=== PATIENT | male | born 1950 | race African-American/Black ===

== ENCOUNTER 2024-03-15 16:24 | Emergency (ER) | payer MEDICARE, SELFPAY ==
[2024-03-15 16:28] VITALS: BP 165/83
--- NOTE | 2024-03-15 16:53 | ED.GENMED ---
History of Present Illness
<Amanda Vences MD PHYSICIAN DERMATOLOGIST - Last Filed: 03/15/24 17:40>
General
Chief Complaint: Throat Problem
Source: patient and spouse
Exam Limitations: none
Time Seen by Provider: 03/15/24 16:52
Nursing documentation reviewed up to this point in time: agreed with
Travel History
Have you had any contact with someone who has COVID-19?: No
Do you have any symptoms of coronavirus? Fever > 100 degrees, chills, cough, shortness of breath, sore throat, loss of taste or smell, muscle aches, or headache?: No
History of Present Illness
History of Present Illness:
74-year-old male with history of HTN on Olmesartan, HCTZ, Atorvastatin and Metoprolol. No ACEI, he used to be on Lisinopril but DC'd a while ago.
Presents with swelling of soft tissues of anterior neck that started 8 a.m. Had salmon caviar and cream cheese last 8 p.m. Went to at 3:30 today diagnosed with angioneurotic edema, given epi pen injection and sent here
Pt denies difficulty speaking or swallowing, denies pain with swallowing
States swelling 'comes and goes' improving on right side of neck denies fever or chills. Denies N/V. Feels well otherwise.
Past History
<Amanda Vences MD PHYSICIAN DERMATOLOGIST - Last Filed: 03/15/24 17:40>
Past History
ED Past Medical History: HTN
ED Past Surgical History: Orthopedic and Other (cataract)
Social History
Tobacco: Former smoker
Personal:
Living: with family
Review of Systems
<Amanda Vences, MD PHYSICIAN DERMATOLOGIST - Last Filed: 03/15/24 17:40>
Review of Systems
Allergies reviewed?: Yes
All Other Systems: ROS reviewed and negative except as documented in HPI and ROS
Constitutional: Denies fever
EENT: Reports other (Swelling anterior neck soft tissues); Denies sore throat, mouth pain or mouth swelling
Respiratory: Denies cough or trouble breathing
Cardiac: Denies chest pain
ABD/GI: Denies abdominal pain or nausea
Musculoskeletal: Denies no symptoms
Skin: Denies no symptoms
Neurological: Denies no symptoms
Phy Exam
<Amanda Vences, MD PHYSICIAN DERMATOLOGIST - Last Filed: 03/15/24 17:40>
Physical Exam
Physical Exam:
GENERAL: No acute distress. A&Ox3.
CONSTITUTIONAL: Afebrile.
EYES: PERRL, conjunctivae normal
Neck: Supple, large non tender submandibular lymph nodes, no redness or warmth
ENMT: moist mucus membranes, Pharynx nl, speaking and swallowing well. No swelling of intraoral/subungual areas or tongue. TMs normal.
RESPIRATORY: Regular respirations, nonlabored, lungs clear.
CARDIOVASCULAR: Regular rate and rhythm, no murmurs, no rubs.
GI: Soft, nontender, normal BS
MUSCULOSKELETAL: Moves with ease. Well perfused.
SKIN: Warm, dry, normal
PSYCH: Normal mood and affect. Well kept, interactive and appropriate
NEUROLOGIC: Awake, alert and oriented. No focal neurological deficits
Course
<Amanda Vences, MD PHYSICIAN DERMATOLOGIST - Last Filed: 03/15/24 17:40>
Orders/Labs/Results
Orders:
Orders
03/15/24 16:56
Lorazepam [Ativan] 0.5 mg PO NOW STA
03/15/24 17:20
Dexamethasone [Decadron] 10 mg PO NOW STA
03/15/24 17:35
Diphenhydramine [Benadryl] 50 mg PO NOW STA
Vital Signs
Initial and Last Documented VS:
Initial Vital Signs
Temp Pulse Resp BP Pulse Ox
97.8 F 83 20 165/83 99
03/15/24 16:28 03/15/24 16:28 03/15/24 16:28 03/15/24 16:28 03/15/24 16:28
Last Documented Vital Signs
Temp Pulse Resp BP Pulse Ox
97.8 F 78 18 156/82 99
03/15/24 17:45 03/15/24 17:45 03/15/24 17:45 03/15/24 17:45 03/15/24 17:45
<Lux Ibarra DO - Last Filed: 03/16/24 08:18>
Orders/Labs/Results
Orders:
Orders
03/15/24 16:56
Lorazepam [Ativan] 0.5 mg PO NOW STA
03/15/24 17:20
Dexamethasone [Decadron] 10 mg PO NOW STA
03/15/24 17:35
Diphenhydramine [Benadryl] 50 mg PO NOW STA
Vital Signs
Initial and Last Documented VS:
Initial Vital Signs
Temp Pulse Resp BP Pulse Ox
97.8 F 83 20 165/83 99
03/15/24 16:28 03/15/24 16:28 03/15/24 16:28 03/15/24 16:28 03/15/24 16:28
Last Documented Vital Signs
Temp Pulse Resp BP Pulse Ox
97.8 F 78 18 156/82 99
03/15/24 17:45 03/15/24 17:45 03/15/24 17:45 03/15/24 17:45 03/15/24 17:45
<Amanda Vences MD PHYSICIAN DERMATOLOGIST - Last Filed: 03/15/24 17:40>
MDM/Problems Addressed
Differential Diagnosis Includes:
Angioedema, Richard's angina, viral illness with lymphadenopathy, peritonsillar abscess, retropharyngeal abscess
MDM/Problems Addressed:
74-year-old male with history of HTN on Olmesartan, HCTZ, Atorvastatin and Metoprolol. No ACEI, he used to be on Lisinopril but DC'd a while ago.
Presents with swelling of soft tissues of anterior neck that started 8 a.m. Had salmon caviar and cream cheese last 8 p.m. Went to at 3:30 today diagnosed with angioneurotic edema, given epi pen injection and sent here
Pt denies difficulty speaking or swallowing, denies pain with swallowing
States swelling 'comes and goes' improving on right side of neck denies fever or chills. Denies N/V. Feels well otherwise.
No respiratory embarrassment, no airway obstruction
No indication of angioedema or Richard's angina.
No indication of abscess
No fever, do not suspect bacterial infection
This appears to be enlarged lymph nodes, left greater than right
Dr. Ibarra in to evaluate patient and agrees with assessment and plan
Short burst of steroids, Benadryl, return if worse
<Lux Ibarra, - Last Filed: 03/16/24 08:18>
*Critical Care Note
Total Time (30-74mins, 75-104mins- exclusive of procedures): Not Applicable
ED Attending Note
<Amanda Vences MD PHYSICIAN DERMATOLOGIST - Last Filed: 03/15/24 17:40>
-
Portions of this chart may have been created with voice recognition software.� Occasional wrong word or��sound alike� substitutions may have occurred due to the inherent limitations of voice recognition software.
<Lux Ibarra DO - Last Filed: 03/16/24 08:18>
ED Attending Note
Patient seen and examined by attending physician: Yes
I performed the substantive portion of visit, reviewed & personally made and approve the management plan that is documented in note by myself or MISAEL.: Yes
ED Attending Note:
74-year-old male referred from urgent care due to throat swelling, acute onset this morning no prior episodes had cream cheese and caviar last evening, no drooling no tongue swelling posterior pharynx looks clear on exam looks like he has left
greater than right submandibular lymphadenopathy with minimal tenderness medications emergent care reviewed, med list from here reviewed will confirm if he is or is not taking ONOFRE inhibitor his symptoms are not classic for ONOFRE induced angioedema may
be reasonable to stop the med if he is in fact on an ONOFRE
Discharge Plan
Departure
Patient Disposition: Home (Routine Discharge)
Date of Disposition: 03/15/24
Time of Disposition: 17:40
Patient with high blood pressure during this ER visit?: No
Condition: Good
Discharge Problem:
Submandibular lymphadenopathy
Instructions: Lymphadenitis (DC)
Prescriptions:
New
prednisone 20 mg tablet
40 mg PO DAILY Qty: 8 0RF
No Action
atorvastatin [Lipitor] 40 MG tablet
40 mg PO DAILY Qty: 20 1RF
nitroglycerin 0.4 MG tablet, sublingual
0.4 mg S DAILY Qty: 1 0RF
Referrals:
Fermin Mathew MD [Family Provider] - Follow up in 2-3 days
Activity Restrictions/Additional Instructions:
As we discussed, you mostly have a viral illness causing your neck lymph nodes to be enlarged.
You had a dose of Decadron steroid here today. I sent a prescription to your pharmacy for prednisone steroid to take daily starting tomorrow for 4 days.
You are also given Benadryl 50 mg here today. You may continue Benadryl 50 mg every 6 hours as needed.
Return here IMMEDIATELY for worsening swelling, trouble speaking or swallowing, or feeling sicker in any way.
Interventions
Interventions:
*Risk Screen - Suicide Last Done: 03/15/24 17:47
*General Assessment Last Done: 03/15/24 17:47
*Neglect/Abuse Screening Last Done: 03/15/24 17:47
ED- Fall Risk Assessment Last Done: 03/15/24 17:47
*ED COVID-19 Vaccine History Last Done: 03/15/24 17:47
*Nursing Disposition Last Done: 03/15/24 17:45
ED-EENT Assessment Last Done: 03/15/24 17:47
ED- Pulmonary Assessment Last Done: 03/15/24 17:47
Discharge Date and Time
Discharge Date/Time: 03/15/24 17:45
Print Language: ROMANIAN
[2024-03-15] MEDS: DECADRON 10 MG PO (17:43)
[2024-03-15] MEDS: BENADRYL 50 MG PO (17:43)
[2024-03-15 17:45] VITALS: BP 156/82
[2024-03-15 17:47] VITALS: BMI 31.4
== END 2024-03-15 17:45 | disposition home or self-care (01) ==
LOC: EMR 16:24
PROVIDERS: EMERGENCY PHYSICIAN Emergency Medicine; FAMILY PHYSICIAN Family Medicine
DX: R59.1 Generalized enlarged lymph nodes (principal); Z87.891 Personal history of nicotine dependence; I10 Essential (primary) hypertension
CPT/HCPCS: 99283

== ENCOUNTER 2024-09-29 10:18 | Emergency (ER) | payer MEDICARE, SELFPAY ==
[2024-09-29 10:40] VITALS: BP 126/68
--- NOTE | 2024-09-29 12:04 | ED.GENMED ---
History of Present Illness
General
Chief Complaint: Back Pain
Source: patient
Exam Limitations: none
Time Seen by Provider: 09/29/24 11:48
History of Present Illness
History of Present Illness:
74-year-old male presents with intermittent right flank pain over the past week and a half. Tends to be worse at night without associated urinary symptoms nausea vomiting or pleuritic component. He has not tried any medication. He is using warm
compresses. No pain down the leg. No chest pain. No other complaints
Past History
Past History
ED Past Medical History: HTN
ED Past Surgical History: Orthopedic and Other (cataract)
Social History
Tobacco: Former smoker
Personal:
Living: with family
Phy Exam
Physical Exam
Physical Exam:
General: Well-appearing male no acute respiratory distress
HEENT: Normocephalic atraumatic
Heart: Regular rate and rhythm no murmurs
Lungs: Clear no wheeze
Musculoskeletal exam: Patient is slightly tender of the right costovertebral angle
Abdomen: Soft nontender to the anterior abdomen
Course
Orders/Labs/Results
Orders:
Orders
09/29/24 12:03
CT Abd/pel Without Iv Or Oral Urgent
Comment:
Reason For Exam: right flank pain
09/29/24 12:10
Complete Blood Count/With Diff Urgent
Comprehensive Metabolic Panel Urgent
Urinalysis Reflex To Culture Urgent
Date Specimen was Collected: 09/29/24
Time Specimen was Collected: 12:04
Abnormal Lab Results
09/29/24
12:10
MPV 12.1 H fL
(7.4-10.4)
Glucose 111 H mg/dl
(70-99)
ALT 53 H U/L
(0-50)
09/29/24 12:10
09/29/24 12:10
Vital Signs
Initial and Last Documented VS:
Initial Vital Signs
Temp Pulse Resp BP Pulse Ox
97.8 F 70 16 126/68 98
09/29/24 10:40 09/29/24 10:40 09/29/24 10:40 09/29/24 10:40 09/29/24 10:40
Last Documented Vital Signs
Temp Pulse Resp BP Pulse Ox
97.8 F 70 18 126/68 98
09/29/24 10:40 09/29/24 10:40 09/29/24 12:14 09/29/24 10:40 09/29/24 10:40
MDM/Problems Addressed
Differential Diagnosis Includes:
Right flank pain. Consider renal colic versus musculoskeletal flank pain less likely to be biliary colic. No rash to suggest shingles.
Will check urine for potential pyelonephritis or infection. CT pending.
*Critical Care Note
Total Time (30-74mins, 75-104mins- exclusive of procedures): Not Applicable
Update Note
Update Note:
CT negative urine negative labs reviewed without significant finding. Suspect musculoskeletal type of pain to the right flank and back. Recommend anti-inflammatories. Will prescribe muscle relaxers for at nighttime use. Stable for discharge with
follow-up
ED Attending Note
-
Portions of this chart may have been created with voice recognition software.� Occasional wrong word or��sound alike� substitutions may have occurred due to the inherent limitations of voice recognition software.
Discharge Plan
Departure
Patient Disposition: Home (Routine Discharge)
Date of Disposition: 09/29/24
Time of Disposition: 15:06
Patient with high blood pressure during this ER visit?: No
Discharge Problem:
Low back pain
Instructions: Low Back Pain (DC)
Prescriptions:
New
ibuprofen 600 mg tablet
600 mg PO Q8H PRN (Reason: Pain) Qty: 14 0RF
methocarbamol 500 mg tablet
500 mg PO TID PRN (Reason: spasm) Qty: 10 0RF
No Action
atorvastatin [Lipitor] 40 MG tablet
40 mg PO DAILY Qty: 20 1RF
nitroglycerin 0.4 MG tablet, sublingual
0.4 mg S DAILY Qty: 1 0RF
prednisone 20 mg tablet
40 mg PO DAILY Qty: 8 0RF
Referrals:
Fermin Mathew MD [Family Provider] -
Activity Restrictions/Additional Instructions:
You may continue with warm compresses. Use anti-inflammatories as directed. Use muscle relaxers as needed. Follow-up with your doctor
Interventions
Interventions:
*Risk Screen - Suicide Last Done: 09/29/24 10:40
*General Assessment Last Done: 09/29/24 10:40
*Neglect/Abuse Screening Last Done: 09/29/24 10:40
*ED COVID-19 Vaccine History Last Done: 09/29/24 12:14
ED-Musculoskeletal Assessment Last Done: 09/29/24 12:14
Discharge Date and Time
Print Language: [place]
[2024-09-29 12:21] LABS: Urine Albumin Negative (Neg - Trace); Urine Bilirubin Negative (Negative); Urine Character Clear (Clear); Urine Color Straw; Urine Glucose Negative (Negative); Urine Ketone Negative (Negative); Urine Leukocyte Negative (Negative); Urine Nitrite Negative (Negative); Urine Occult Blood Negative (Negative); Urine Urobilinogen Negative (Neg - 1+)
[2024-09-29 12:24] LABS: % Basophils 0.6 % (0-2); % Eosinophils 5.2 % (0-6); % Immature Granulocytes 0.2 % (0-0.5); % Lymphocytes 30.2 % (20.5-51.1); % Monocytes 8.9 % (1.7-9.3); % Neutrophils 54.9 % (42.2-75.2); Absolute Eosinophils 0.3 10^3/uL (0-0.7); Absolute Lymphocytes 1.5 10^3/uL (1.2-3.4); Absolute Monocytes 0.4 10^3/uL (0.1-0.6); Absolute Neutrophils 2.7 10^3/uL (1.4-6.5); Hematocrit 44.3 % (39.0-52.0); Hemoglobin 15.4 g/dL (13.0-18.0); Mean Corp Hgb Conc. 34.8 g/dL (33.0-37.0); Mean Corpuscular Hgb 30.2 pg (27.0-31.0); Mean Corpuscular Volume 86.9 fL (80.0-94.0); Mean Platelet Volume 12.1 fL (7.4-10.4); Nucleated Red Blood Cells % 0 % (-); Platelet Count 153 10^3/uL (130-400); Red Cell Dist. Width 12.5 % (11.5-14.5)
[2024-09-29 12:35] LABS: ALT (SGPT) 53 U/L (0-50); AST (SGOT) 40 U/L (17-59); Albumin 4.6 g/dl (3.5-5.0); Alkaline Phosphatase 106 U/L (38-126); Blood Urea Nitrogen 20 mg/dl (9-20); Calcium 10.2 mg/dl (8.4-10.2); Carbon Dioxide 30 mmol/L (22-30); Chloride 100 mmol/L (98-107); Glucose 111 mg/dl (70-99); Potassium 4.5 mmol/L (3.5-5.1); Sodium 139 mmol/L (135-145); Total Bilirubin 0.5 mg/dl (0.2-1.3); Total Protein 7.4 g/dl (6.3-8.2); eGFR > 60.00
== END 2024-09-29 15:12 | disposition home or self-care (01) ==
LOC: EMR 10:18
PROVIDERS: Physician Assistant; EMERGENCY PHYSICIAN Emergency Medicine; FAMILY PHYSICIAN Family Medicine
DX: M54.50 Low back pain, unspecified (principal); Z87.891 Personal history of nicotine dependence
CPT/HCPCS: 99284; 74176; 80053; 81003; 85025

== ENCOUNTER → 2024-10-29 13:25 | Outpatient (REF) | payer MEDICARE, SELFPAY | LOC: PAVMRI 13:25 | PROVIDERS: ATTENDING PHYSICIAN Physician Assistant; FAMILY PHYSICIAN Family Medicine | DX: M54.14 Radiculopathy, thoracic region (principal) | CPT/HCPCS: 72146 ==

== ENCOUNTER 2025-09-08 06:14 | Day surgery (SDC) | payer MEDICARE, SELFPAY | END 2025-09-08 13:43 | disposition home or self-care (01) | LOC: GI 06:14 | PROVIDERS: ATTENDING PHYSICIAN Internal Medicine | DX: Z12.11 Encounter for screening for malignant neoplasm of colon (principal); K57.30 Diverticulosis of large intestine without perforation or abscess without bleeding; K64.9 Unspecified hemorrhoids; D12.0 Benign neoplasm of cecum; Z86.0100 Personal history of colon polyps, unspecified | CPT/HCPCS: 45380; 88305 ==